=== PATIENT | female | born 2005 | race Caucasian/White ===

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

== ENCOUNTER 2023-08-19 06:00 | Outpatient (RCR) | payer BC, SELFPAY | END 2023-09-15 23:59 | disposition home or self-care (01) | LOC: GPT 06:00 | PROVIDERS: Visit Provider Orthopaedic Surgery | DX: M25.561 Pain in right knee (principal) | CPT/HCPCS: 97110; 97112; 97140; 97162; 97530 ==

== ENCOUNTER → 2024-02-06 15:21 | Outpatient (BNVA) | payer BC, OTHER, SELFPAY | PROVIDERS: PCP Nurse Practitioner Family; Visit Provider Nurse Practitioner Family | DX: R50.9 Fever, unspecified (principal); R07.0 Pain in throat | CPT/HCPCS: 87400; 87426 ==

== ENCOUNTER 2025-04-02 10:25 | Emergency (ER) | payer BC, SELFPAY ==
[2025-04-02 10:39] VITALS: BP 116/79; PULSE 122; RESP 16; TEMP 36.8; O2SAT 99
[2025-04-02 12:02] LABS: Basophils # 0.1 10^3/uL (0.0-0.1); Basophils % 0.6 %; Eosinophils % 0.1 %; Hematocrit 37.4 % (36-47); Lymphocytes # 0.9 10^3/uL (0.8-4.8); Lymphocytes % 5.9 %; Mean Corpuscular HGB Conc 32.4 g/dL (30-55); Mean Corpuscular Hemoglobin 28.7 pg (27-33); Mean Corpuscular Volume 88.6 fl (85-98); Monocytes # 1.4 10^3/uL (0.2-0.9); Monocytes % 9.5 %; Neutrophils % 83.2 %; Nucleated Red Blood Cells % 0 %; Platelet Count 177 10^3/cmm (157-399); Red Blood Count 4.22 10^6/uL (3.85-5.65); Red Cell Distribution Width 14.6 % (12.1-15.1); White Blood Count 14.41 10^3/uL (3.29-11.43)
[2025-04-02 12:20] LABS: Alanine Aminotransferase 17 U/L (0-33); Albumin Level 3.5 g/dL (3.5-5.2); Alkaline Phosphatase 86 U/L (35-105); Anion Gap 15.4 (5-19); Aspartate Amino Transferase 12 U/L (0-32); Blood Urea Nitrogen 10 mg/dL (6-20); Calcium 8.5 mg/dL (8.5-10.5); Carbon Dioxide 23 mmol/L (22-29); Chloride 103 mmol/L (98-107); Globulin 3.2 g/dL (1.3-4.6); Glomerular Filtration Rate 126.2 mL/min (90-130); Glucose 110 mg/dL (65-115); Lipase 16 U/L (13-60); Osmolality Calculated 284 mOsm/kg (285-295); Potassium 4.4 mmol/L (3.5-5.1); Sodium 137 mmol/L (136-145); Total Bilirubin 0.6 mg/dL (0.15-1.2); Total Protein 6.7 g/dL (6.6-8.7)
[2025-04-02 12:29] LABS: Slide Review Slide Review Perform
[2025-04-02 12:41] LABS: Bilirubin Urine Negative (Negative); Blood Urine Trace (Negative); Glucose Urine UA Negative (Normal); Ketones Urine Negative (Negative); Leukocyte Esterase Urine 2+ (Negative); Nitrate Urine Positive (Negative); Protein Urine Trace (Negative); Specific Gravity, Urine 1.011 (1.005-1.030); Urine Appearance Clear (CLEAR); Urine Color Yellow (Yellow); pH Urine 6.5 (5-7)
[2025-04-02 12:53] LABS: Add Urine Microscopic? YES; Bacteria Urine 4+ /hpf; Hyaline Casts Urine 1.65 /lpf; RBC Urine 0-2 /hpf (0-2); Squamous Epithelial Cell Urine 0-5 /hpf (0-5); WBC Urine 21-50 /hpf (0-5)
[2025-04-02 13:15] LABS: Add Urine Culture? Yes
--- NOTE | 2025-04-02 14:22 | W.ED.NAVMDI ---
HPI - Nausea/Vomiting/Diarrhea General: Chief complaint: Nausea/Vomiting/Diarrhea Stated complaint: n/v/d/f Time Seen by Provider: 04/02/25 11:22 History of Present Illness: 19-year-old female who presents emergency room with abdominal pain nausea vomiting dysuria. Patient reports a fever at home.. Patient has a history of spina bifida. Denies any hematuria. No flank pain Associated symtoms: Reports dysuria; Denies chest pain Related Data Home Medications ?Medication ?Instructions ?Recorded ?Confirmed oxybutynin chloride 10 mg 20 mg PO DAILY 07/22/21 02/21/24 tablet,extended release 24 hr Previous Rx's ?Medication ?Instructions ?Recorded adapalene 0.3 % topical gel with 1 applic topical DAILY #45 grams 02/06/24 pump ceramides 1,3,6-II (CeraVe topical 1 applic topical BID #355 mL 02/06/24 cleanser) cefdinir 300 mg capsule 300 mg PO BID 10 days #20 caps 04/02/25 promethazine 25 mg tablet 25 mg PO Q6H PRN nausea and 04/02/25 vomiting #20 tabs Allergies Allergy/AdvReac Type Severity Reaction Status Date / Time vancomycin Allergy Unknown Verified 11/02/22 09:54 Review of Systems Const: Denies: fever(s) or chills Card: Denies: chest pain Resp: Denies: dyspnea GI: Denies: abdominal pain : Reports: dysuria and urinary frequency; Denies: urinary urgency Musc: Denies: neck pain or back pain Skin/Breast: Denies: rash PFSH ED PFSH: Social History Smoking and tobacco/nicotine status: never used tobacco/nicotine Physical Exam Const: GENERAL APPEARANCE: cooperative ORIENTATION/CONSCIOUSNESS: Yes awake, Yes oriented to person, Yes oriented to place and Yes oriented to time HENMT: COMMON NORMALS: normocephalic, atraumatic and hearing grossly normal bilaterally HEAD & SCALP: normocephalic and atraumatic Resp: COMMON NORMALS: normal respiratory effort, No retractions, No use of accessory muscles and clear to auscultation bilaterally AUSCULTATION: clear to auscultation bilaterally Cardio: COMMON NORMALS: regular rate, regular rhythm and No murmurs present (Cardio) RATE: regular rate RHYTHM: regular rhythm GI: COMMON NORMALS: Soft to palpation and No hepatosplenomegaly present AUSCULTATION: Yes normoactive bowel sounds PALPATION: Yes Soft to palpation, No Tenderness to palpation present (GI), No Guarding due to palpation present (GI) and Yes No hepatosplenomegaly present : COMMON NORMALS: Yes no CVA tenderness BLADDER/KIDNEY EXAM: Yes no CVA tenderness Back/Pelvis: COMMON NORMALS: no CVA tenderness Extremity: COMMON NORMALS: normal to inspection, capillary refill normal, no clubbing, cyanosis or edema, no calf tenderness and no pedal edema Neuro: SENSORIUM/ORIENTATION: Yes oriented to person, Yes oriented to place and Yes oriented to time Skin: COMMON NORMALS: no rashes or lesions noted GENERAL SKIN EXAM: no rashes or lesions noted Course Vital Signs: Vital signs: Vital Signs Temperature 98.3 F 04/02/25 10:39 Pulse Rate 124 H 04/02/25 15:11 Respiratory Rate 16 04/02/25 15:11 Blood Pressure 114/76 04/02/25 15:11 Pulse Oximetry 100 04/02/25 15:11 Oxygen Delivery Me thod Room Air 04/02/25 15:11 MDM - Nausea/Vomiting/Diarrhea Medical Decision Making Patient found to have cystitis mild elevation white count clinically she is doing well we will give her dose Rocephin and discharged home with oral antibiotics start cefdinir 300 twice daily. Also gave promethazine to use as needed follow-up with primary care if not improving Medical Records I reviewed the patient's medical records. Lab Data I reviewed the patient's lab results. 04/02/25 11:57 04/02/25 11:57 Laboratory Results WBC 14.41 10^3/uL (3.29-11.43) H 04/02/25 11:57 RBC 4.22 10^6/uL (3.85-5.65) 04/02/25 11:57 Hgb 12.10 g/dL (11.27-16.99) 04/02/25 11:57 Hct 37.4 % (36-47) 04/02/25 11:57 MCV 88.6 fl (85-98) 04/02/25 11:57 MCH 28.7 pg (27-33) 04/02/25 11:57 MCHC 32.4 g/dL (30-55) 04/02/25 11:57 RDW 14.6 % (12.1-15.1) 04/02/25 11:57 Plt Count 177 10^3/cmm (157-399) 04/02/25 11:57 MPV 11.0 fL (7.4-10.4) H 04/02/25 11:57 Neut % (Auto) 83.2 % 04/02/25 11:57 Lymph % (Auto) 5.9 % 04/02/25 11:57 [place] % (Auto) 9.5 % 04/02/25 11:57 Eos % (Auto) 0.1 % 04/02/25 11:57 Baso % (Auto) 0.6 % 04/02/25 11:57 Neut # (Auto) 12.00 10^3/uL (1.8-7.7) H 04/02/25 11:57 Lymph # (Auto) 0.9 10^3/uL (0.8-4.8) 04/02/25 11:57 [place] # (Auto) 1.4 10^3/uL (0.2-0.9) H 04/02/25 11:57 Eos # (Auto) 0.0 10^3/uL (0.0-0.8) 04/02/25 11:57 Baso # (Auto) 0.1 10^3/uL (0.0-0.1) 04/02/25 11:57 Nucleated RBC % (auto) 0 % 04/02/25 11:57 Nucleated RBCs # 0.0 /100WBC 04/02/25 11:57 Sodium 137 mmol/L (136-145) 04/02/25 11:57 Potassium 4.4 mmol/L (3.5-5.1) 04/02/25 11:57 Chloride 103 mmol/L (98-107) 04/02/25 11:57 Carbon Dioxide 23 mmol/L (22-29) 04/02/25 11:57 Anion Gap 15.4 (5-19) 04/02/25 11:57 BUN 10 mg/dL (6-20) 04/02/25 11:57 Creatinine 0.6 mg/dL (0.5-0.9) 04/02/25 11:57 GFR Calculation 126.2 mL/min (90-130) 04/02/25 11:57 Glucose 110 mg/dL (65-115) 04/02/25 11:57 Calculated Osmolality 284 mOsm/kg (285-295) L 04/02/25 11:57 Calcium 8.5 mg/dL (8.5-10.5) 04/02/25 11:57 Total Bilirubin 0.6 mg/dL (0.15-1.2) 04/02/25 11:57 AST 12 U/L (0-32) 04/02/25 11:57 ALT 17 U/L (0-33) 04/02/25 11:57 Alkaline Phosphatase 86 U/L (35-105) 04/02/25 11:57 Total Protein 6.7 g/dL (6.6-8.7) 04/02/25 11:57 Albumin 3.5 g/dL (3.5-5.2) 04/02/25 11:57 Globulin 3.2 g/dL (1.3-4.6) 04/02/25 11:57 Lipase 16 U/L (13-60) 04/02/25 11:57 Urine Color Yellow (Yellow) 04/02/25 12:08 Urine Appearance Clear (CLEAR) 04/02/25 12:08 Urine pH 6.5 (5-7) 04/02/25 12:08 Ur Specific [place] 1.011 (1.005-1.030) 04/02/25 12:08 Urine Protein Trace (Negative) A 04/02/25 12:08 Urine Glucose (UA) Negative (Normal) 04/02/25 12:08 Urine Ketones Negative (Negative) 04/02/25 12:08 Urine Blood Trace (Negative) A 04/02/25 12:08 Urine Nitrate Positive (Negative) A 04/02/25 12:08 Urine Bilirubin Negative (Negative) 04/02/25 12:08 Urine Urobilinogen 1.0 mg/dL (Negative) 04/02/25 12:08 Ur Leukocyte Esterase 2+ (Negative) A 04/02/25 12:08 Urine RBC 0-2 /hpf (0-2) 04/02/25 12:08 Urine WBC 21-50 /hpf (0-5) H 04/02/25 12:08 Ur Squamous Epith Cells 0-5 /hpf (0-5) 04/02/25 12:08 Amorphous Sediment Not Reportable 04/02/25 12:08 Urine Bacteria 4+ /hpf (NONE) H 04/02/25 12:08 Hyaline Casts 1.65 /lpf 04/02/25 12:08 No radiology studies performed this visit Discharge Plan Discharge Patient Disposition: Home Clinical Impression: Cystitis Condition: Stable Prescriptions: New cefdinir 300 mg capsule 300 mg PO BID 10 Days Qty: 20 0RF promethazine 25 mg tablet 25 mg PO Q6H PRN (Reason: nausea and vomiting) Qty: 20 0RF No Action oxybutynin chloride 10 mg tablet extended release 24hr 20 mg PO DAILY adapalene 0.3 % gel with pump 1 applic topical DAILY Qty: 45 1RF CeraVe Cleanser 1 applic topical BID Qty: 355 1RF Discharge Orders: Discharge ED (Routine); Ordered 04/02/25 Ordered By: Chris Whittaker Referrals: Isacc Hwang DO [Primary Care Provider, Family Practice] Discharge Diet: Usual diet Discharge Activity: Resume usual activity Patient Instructions: Urinary Tract Infection in Men (ED), Opioid Safety, Pain Management Activity Restrictions/Additional Instructions: Thank you for choosing [facility] for your healthcare needs today. It is very important that you follow up as instructed or that you return to the Emergency Department should you have concerns or if your condition changes or worsens in any way. 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
[2025-04-02] MEDS: sodium chloride 0.9% 1,000 ML 999 ML IV (15:09)
[2025-04-02] MEDS: cefTRIAXone 1,000 mg SDV 1000 MG IVP (15:10)
[2025-04-02 15:11] VITALS: BP 114/76; PULSE 124; RESP 16; O2SAT 100
[2025-04-02 16:14] VITALS: BP 133/82; PULSE 135; O2SAT 98
== END 2025-04-02 16:16 | disposition home or self-care (01) ==
PROVIDERS: Emergency Medicine; Emergency Provider Family Medicine; PCP Family Medicine
DX: N30.90 Cystitis, unspecified without hematuria (principal)
CPT/HCPCS: 36415; 80053; 81001; 83690; 85025; 87077; 87086; 87186; 96361; 96374; 99284; J0696; J7030